=== PATIENT | female | born 1985 | race Caucasian/White ===

== ENCOUNTER 2021-04-23 06:30 | Emergency (ER) | payer OTHER ==
[2021-04-23 06:45] VITALS: BMI 37.0
[2021-04-23] MEDS ORDERED: ACETAMINOPHEN 325 MG TABLET (FP) PO ONE (07:02)
[2021-04-23] MEDS ORDERED: ACETAMINOPHEN 500 MG TABLET (FP) ONE (07:55)
[2021-04-23 08:16] VITALS: BP 125/61; PULSE 70; TEMP 98.4
[2021-04-23 08:26] LABS: EPI CELLS >36 /uL (0-25.1); HYALINE CASTS 8 /uL (0-3.1); URINE APPEARANCE CLOUDY; URINE BACTERIA 2162 /uL (0-1359); URINE BILIRUBIN NEGATIVE (NEGATIVE); URINE COLOR YELLOW; URINE GLUCOSE (UA) NEGATIVE (NEGATIVE); URINE KETONE NEGATIVE (NEGATIVE); URINE LEUK ESTERASE TRACE (NEGATIVE); URINE NITRITE NEGATIVE (NEGATIVE); URINE PROTEIN NEGATIVE (NEGATIVE); URINE RBC 21 /uL (0-23.9); URINE WBC 64 /uL (0-25.8)
[2021-04-23] MEDS ORDERED: ACETAMINOPHEN 500 MG TABLET (FP) PO ONE (08:36)
== END 2021-04-23 08:50 | disposition home or self-care (01) ==
LOC: JER 06:30
DX: M54.5 Low back pain (principal); Z3A.22 22 weeks gestation of pregnancy
CPT/HCPCS: 81003; 87086; 99283-25

== ENCOUNTER 2021-08-04 12:07 | Inpatient (IN) | payer OTHER ==
[2021-08-04] MEDS ORDERED: CITRIC ACID/SODIUM CITRATE 30 ML UNIT-DOSE CUP PO ONE (12:36)
[2021-08-04] MEDS ORDERED: ELECTROLYTE-148 SOLN 1,000 ML IV SCH (12:45)
[2021-08-04 12:59] LABS: EOS % 0.5 % (0-4.5); HEMATOCRIT 33.9 % (32.4-45.2); HEMOGLOBIN 11.8 GM/dL (10.7-15.3); LYMPH % 14.1 % (8-40); MCH 30.6 pg (25.7-33.7); MCHC 34.6 g/dl (32.0-36.0); MEAN CELL VOLUME 88.3 fl (80-96); MEAN PLT VOLUME 10.1 fl (7.5-11.1); MONO % 6.3 % (3.8-10.2); NEUT % 78.1 % (42.8-82.8); PLATELET COUNT 151 10^3/uL (134-434); RBC 3.84 M/mm3 (3.60-5.2); RDW 13.7 % (11.6-15.6); WHITE BLOOD COUNT 5.9 K/mm3 (4.0-10.0)
[2021-08-04 13:05] VITALS: BMI 40.2
[2021-08-04 13:05] LABS: INR 0.86 (0.83-1.09); PROTHROMBIN TIME (PATIENT) 10.6 SEC (9.7-13.0)
[2021-08-04 13:07] LABS: ACTIVATED PTT 29.2 SECONDS (25.2-36.5)
[2021-08-04 13:22] LABS: BLOOD UREA NITROGEN 12.7 mg/dL (7-18); CALCIUM 8.2 mg/dL (8.5-10.1)
[2021-08-04 13:26] LABS: CREATININE 0.4 mg/dL (0.55-1.3)
[2021-08-04] MEDS ORDERED: OXYTOCIN 20 UNITS in 0.9% NS 20 UNIT/1,000 ML INFUS.BAG IV ONE ×2 (13:52→16:02)
[2021-08-04] MEDS ORDERED: ceFAZolin SODIUM 1 GM VIAL ONE ×2 (13:54→21:18)
[2021-08-04] MEDS ORDERED: ONDANSETRON 4 MG/2 ML VIAL ONE (13:54)
[2021-08-04] MEDS ORDERED: morphine SULFATE (PF) 1 MG/2 ML SYRINGE ONE (13:54)
[2021-08-04] MEDS ORDERED: KETOROLAC TROMETHAMINE 30 MG/1 ML VIAL ONE (13:54)
[2021-08-04] MEDS ORDERED: morphine SULFATE/PF 1 MG/2 ML (2cc Syringe - QUVA) EP ONE (14:31)
[2021-08-04] MEDS ORDERED: ONDANSETRON 4 MG/2 ML VIAL IVPUSH PRN (14:31)
[2021-08-04 15:03] LABS: CORD BASE EXCESS -4.1 mmol/L (0-2); CORD HCO3 25.1 mmHg (20-29); CORD PCO2 63.2 mmHg (30-78); CORD pH 7.216 (7.14-7.44)
[2021-08-04 15:07] LABS: CORD BASE EXCESS -5.1 mmol/L (0-2); CORD PCO2 47.9 mmHg (30-78); CORD pH 7.279 (7.14-7.44)
[2021-08-04] MEDS ORDERED: BENZOCAINE 20% 57 GM BOTTLE TP PRN (15:17)
[2021-08-04] MEDS ORDERED: WITCH HAZEL 50% (TUCKS) 40 PAD/JAR PAD TP PRN (15:17)
[2021-08-04] MEDS ORDERED: METHYLERGONOVINE MALEATE 0.2 MG/1 ML AMP IM PRN (15:17)
[2021-08-04] MEDS ORDERED: oxyCODONE HCL 5 MG TABLET PO PRN ×2 (15:17)
[2021-08-04] MEDS ORDERED: IBUPROFEN 800 MG/8 ML IJ IVPB PRN (15:17)
[2021-08-04] MEDS ORDERED: diphenhydrAMINE HCL 25 MG CAPSULE (FP) PO PRN (15:17)
[2021-08-04] MEDS ORDERED: BENZOCAINE 28 GM HEMORRHOIDAL OINTMENT PR PRN (15:17)
[2021-08-04] MEDS ORDERED: ACETAMINOPHEN 325 MG TABLET (FP) PO PRN (15:18)
[2021-08-04] MEDS ORDERED: DEXTROSE 5%-LACTATED RINGERS 1,000 ML IV SCH (15:30)
[2021-08-04] MEDS ORDERED: OXYTOCIN 20 UNITS in 0.9% NS 20 UNIT/1,000 ML INFUS.BAG IV SCH (15:30)
[2021-08-04] MEDS ORDERED: IBUPROFEN 800 MG/8 ML IJ IVPB ONE (16:02)
[2021-08-04] MEDS ORDERED: DEXTROSE 5%-WATER - 50 ML IVPB ONE (21:18)
[2021-08-04] MEDS: CEFAZOLIN 1 GM in DEXTROSE 5%-WATER - 1 GM/50 ML IVPB IVPB SCH (21:20)
[2021-08-05] MEDS ORDERED: DEXTROSE 5%-WATER - 50 ML IVPB ONE (06:35)
[2021-08-05] MEDS ORDERED: ceFAZolin SODIUM 1 GM VIAL ONE (06:35)
[2021-08-05] MEDS: CEFAZOLIN 1 GM in DEXTROSE 5%-WATER - 1 GM/50 ML IVPB IVPB SCH (06:41)
[2021-08-05 07:16] LABS: BASO % 0.4 % (0-2.0); EOS % 0.8 % (0-4.5); HEMATOCRIT 33.7 % (32.4-45.2); HEMOGLOBIN 11.6 GM/dL (10.7-15.3); LYMPH % 11.9 % (8-40); MCHC 34.5 g/dl (32.0-36.0); MEAN CELL VOLUME 89.8 fl (80-96); MEAN PLT VOLUME 11.3 fl (7.5-11.1); NEUT % 79.9 % (42.8-82.8); PLATELET COUNT 139 10^3/uL (134-434); RBC 3.75 M/mm3 (3.60-5.2); RDW 13.8 % (11.6-15.6); WHITE BLOOD COUNT 6.6 K/mm3 (4.0-10.0)
[2021-08-05] MEDS: IBUPROFEN 600 MG TABLET (FP) PO PRN ×3 (09:24→21:58)
[2021-08-05] MEDS: SIMETHICONE 80 MG TAB.CHEW (FP) PO PRN ×2 (09:24→21:23)
[2021-08-05] MEDS: ENOXAPARIN NA (PORCINE) 40 MG/0.4 ML DISP.SYRIN SQ SCH (09:27)
[2021-08-05] MEDS ORDERED: BISACODYL 10 MG SUPP.RECT PR PRN (15:17)
[2021-08-06] MEDS: IBUPROFEN 600 MG TABLET (FP) PO PRN ×3 (06:21→22:12)
[2021-08-06] MEDS: SIMETHICONE 80 MG TAB.CHEW (FP) PO PRN (09:27)
[2021-08-06] MEDS: ENOXAPARIN NA (PORCINE) 40 MG/0.4 ML DISP.SYRIN SQ SCH (09:27)
[2021-08-06] MEDS ORDERED: SENNOSIDES/DOCUSATE COMBO (SENNA PLUS) TABLET (UD) PO PRN (22:00)
[2021-08-07 07:48] LABS: BASO % 0.9 % (0-2.0); HEMATOCRIT 31.1 % (32.4-45.2); HEMOGLOBIN 10.7 GM/dL (10.7-15.3); LYMPH % 18.5 % (8-40); MCH 30.6 pg (25.7-33.7); MCHC 34.4 g/dl (32.0-36.0); MEAN CELL VOLUME 89.1 fl (80-96); MEAN PLT VOLUME 10.5 fl (7.5-11.1); NEUT % 70.6 % (42.8-82.8); PLATELET COUNT 154 10^3/uL (134-434); RBC 3.49 M/mm3 (3.60-5.2); RDW 14.2 % (11.6-15.6); WHITE BLOOD COUNT 5.8 K/mm3 (4.0-10.0)
[2021-08-07] MEDS: ENOXAPARIN NA (PORCINE) 40 MG/0.4 ML DISP.SYRIN SQ SCH (09:06)
[2021-08-07] MEDS: SIMETHICONE 80 MG TAB.CHEW (FP) PO PRN (09:54)
[2021-08-07] MEDS: IBUPROFEN 600 MG TABLET (FP) PO PRN (09:54)
[2021-08-07 10:30] VITALS: BP 98/64; PULSE 62; TEMP 98.4
== END 2021-08-07 12:50 | disposition home or self-care (01) | DRG 540 ==
LOC: JLDR 12:07 → J3W 17:05
PROVIDERS: ADMIT Obstetrics & Gynecology; ATTEND Obstetrics & Gynecology
PROC: 10D00Z1 Extraction of Products of Conception, Low, Open Approach (ICD-10-PCS; principal; 2021-08-04)
PROC: 0UT77ZZ Resection of Bilateral Fallopian Tubes, Via Natural or Artificial Opening (ICD-10-PCS; 2021-08-04)
DX: O34.219 Maternal care for unspecified type scar from previous cesarean delivery (principal); O28.3 Abnormal ultrasonic finding on antenatal screening of mother; Z30.2 Encounter for sterilization; O24.12 Pre-existing type 2 diabetes mellitus, in childbirth; N73.6 Female pelvic peritoneal adhesions (postinfective); E11.9 Type 2 diabetes mellitus without complications; Z3A.37 37 weeks gestation of pregnancy; Z37.0 Single live birth; Z79.4 Long term (current) use of insulin
CPT/HCPCS: 36415; 36600; 80048; 82803; 82962; 85025; 85610; 85730; 86780; 86850; 86900; 86901; 88302-TC; 88307-TC; C9803; U0003; U0005

== ENCOUNTER 2022-12-11 12:39 | Emergency (ER) | payer OTHER ==
[2022-12-11 13:05] VITALS: BP 123/62; RESP 20; TEMP 98.8; BMI 35.2
[2022-12-11] MEDS ORDERED: KETOROLAC TROMETHAMINE 30 MG/1 ML VIAL IVPUSH ONE (14:19)
[2022-12-11] MEDS ORDERED: SODIUM CHLORIDE 1,000 ML IV STA (14:19)
[2022-12-11] MEDS ORDERED: KETOROLAC TROMETHAMINE 30 MG/1 ML VIAL ONE (14:47)
[2022-12-11 15:18] LABS: BASO % 0.3 % (0-2.0); EOS % 2.6 % (0-4.5); HEMATOCRIT 31.9 % (32.4-45.2); HEMOGLOBIN 9.9 GM/dL (10.7-15.3); LYMPH % 20.2 % (8-40); MCH 22.1 pg (25.7-33.7); MEAN CELL VOLUME 71.3 fl (80-96); MEAN PLT VOLUME 9.9 fl (7.5-11.1); MONO % 8.8 % (3.8-10.2); NEUT % 68.1 % (42.8-82.8); PLATELET COUNT 216 10^3/uL (134-434); RBC 4.47 M/mm3 (3.60-5.2); RDW 33.4 % (11.6-15.6); WHITE BLOOD COUNT 5.8 K/mm3 (4.0-10.0)
[2022-12-11 15:23] LABS: HCG,QUALITATIVE URINE Negative
[2022-12-11 15:24] LABS: EPI CELLS 35 /uL (0-25.1); HYALINE CASTS 3 /uL (0-3.1); PH,URINE 5.5 (5.0-8.0); URINE APPEARANCE TURBID; URINE BILIRUBIN 1+ (NEGATIVE); URINE COLOR RED; URINE GLUCOSE (UA) NEGATIVE (NEGATIVE); URINE KETONE NEGATIVE (NEGATIVE); URINE LEUK ESTERASE 2+ (NEGATIVE); URINE NITRITE POSITIVE (NEGATIVE); URINE PROTEIN 2+ (NEGATIVE); URINE RBC 45544 /uL (0-23.9); URINE WBC 163 /uL (0-25.8)
[2022-12-11 15:25] LABS: URINE BACTERIA 2 /uL (0-1359)
[2022-12-11 15:25] LABS: INR 1.21 (0.83-1.09)
[2022-12-11 15:27] LABS: ACTIVATED PTT 33.8 SECONDS (25.2-36.5)
[2022-12-11 15:28] LABS: ALBUMIN 3.2 g/dl (3.4-5.0); CALCIUM 8.6 mg/dL (8.5-10.1)
[2022-12-11 15:31] LABS: CREATININE 0.5 mg/dL (0.55-1.3)
[2022-12-11 15:33] LABS: BILIRUBIN,TOTAL 0.4 mg/dL (0.2-1); TOT PROT 7.6 g/dl (6.4-8.2)
[2022-12-11 20:45] VITALS: PULSE 89
== END 2022-12-11 20:44 | disposition home or self-care (01) ==
LOC: JER 12:39
PROC: 3E0333Z Introduction of Anti-inflammatory into Peripheral Vein, Percutaneous Approach (ICD-10-PCS; principal; 2022-12-11)
PROC: 3E0337Z Introduction of Electrolytic and Water Balance Substance into Peripheral Vein, Percutaneous Approach (ICD-10-PCS; 2022-12-11)
DX: N30.90 Cystitis, unspecified without hematuria (principal)
CPT/HCPCS: 36415; 76705-TC; 80053; 81003; 84703; 85025; 85610; 85730; 86850; 86900; 86901; 87086; 99284-25

== ENCOUNTER 2022-12-12 06:41 | Emergency (ER) | payer OTHER ==
[2022-12-12 06:51] VITALS: BP 121/61; PULSE 72; RESP 17; TEMP 97.6; BMI 37.0
[2022-12-12] MEDS ORDERED: KETOROLAC TROMETHAMINE 15 MG/ML VIAL IVPUSH ONE (07:56)
[2022-12-12] MEDS ORDERED: KETOROLAC TROMETHAMINE 15 MG/ML VIAL ONE (08:06)
[2022-12-12 08:23] LABS: BASO % 0.3 % (0-2.0); HEMATOCRIT 29.7 % (32.4-45.2); HEMOGLOBIN 9.3 GM/dL (10.7-15.3); MCH 22.3 pg (25.7-33.7); MCHC 31.3 g/dl (32.0-36.0); MEAN CELL VOLUME 71.3 fl (80-96); MONO % 6.9 % (3.8-10.2); NEUT % 69.8 % (42.8-82.8); PLATELET COUNT 208 10^3/uL (134-434); RBC 4.16 M/mm3 (3.60-5.2); RDW 33.2 % (11.6-15.6); WHITE BLOOD COUNT 4.8 K/mm3 (4.0-10.0)
[2022-12-12 09:00] LABS: BLOOD UREA NITROGEN 10.3 mg/dL (7-18); CALCIUM 8.3 mg/dL (8.5-10.1)
[2022-12-12 09:04] LABS: CREATININE 0.5 mg/dL (0.55-1.3)
[2022-12-12 10:21] LABS: EPI CELLS 28 /uL (0-25.1); HYALINE CASTS 2 /uL (0-3.1); PH,URINE 5.5 (5.0-8.0); URINE APPEARANCE TURBID; URINE BACTERIA 17 /uL (0-1359); URINE BILIRUBIN NEGATIVE (NEGATIVE); URINE COLOR ORANGE; URINE GLUCOSE (UA) NEGATIVE (NEGATIVE); URINE KETONE NEGATIVE (NEGATIVE); URINE LEUK ESTERASE 1+ (NEGATIVE); URINE NITRITE NEGATIVE (NEGATIVE); URINE PROTEIN 2+ (NEGATIVE); URINE RBC 26898 /uL (0-23.9); URINE WBC 116 /uL (0-25.8)
== END 2022-12-12 12:42 | disposition home or self-care (01) ==
LOC: JER 06:41
PROC: 3E0333Z Introduction of Anti-inflammatory into Peripheral Vein, Percutaneous Approach (ICD-10-PCS; principal; 2022-12-12)
DX: N93.9 Abnormal uterine and vaginal bleeding, unspecified (principal)
CPT/HCPCS: 36415; 76830-TC; 80048; 81003; 85025; 87086; 99284-25